=== PATIENT | female | born 1995 | race Two or more races ===

== ENCOUNTER 2023-05-09 21:26 | Emergency (ER) | payer MEDICAID ==
[~2023-05-09] VITALS: Ht 165.1 cm; Wt 59.9 kg
[2023-05-09] MEDS ORDERED: LIDOCAINE HCL 1% 20 ML VIAL TP ONE (21:45)
[2023-05-09] MEDS ORDERED: LIDOCAINE HCL 1% 20 ML VIAL ONE (21:52)
[2023-05-09] MEDS ORDERED: NEOMY/BACITRA/POLYMYXIN B OINT UD PACKET TP ONE ×2 (22:15)
[2023-05-09 22:38] VITALS: BP 101/72; O2SAT 100
== END 2023-05-09 22:38 | disposition home or self-care (01) ==
LOC: ER 21:40
DX: S61.412A Laceration without foreign body of left hand, initial encounter (principal); X58.XXXA Exposure to other specified factors, initial encounter; Y93.89 Activity, other specified; Y92.89 Other specified places as the place of occurrence of the external cause; Y99.8 Other external cause status
CPT/HCPCS: 12002; 73130; 99283; J3490; A4606; A4663

== ENCOUNTER 2023-05-11 14:12 | Emergency (ER) | payer MEDICAID ==
[~2023-05-11] VITALS: Ht 165.1 cm; Wt 59.9 kg
[2023-05-11 14:21] VITALS: O2SAT 100
[2023-05-11] MEDS ORDERED: CEPH500C2 PO (14:58)
[2023-05-11] MEDS ORDERED: ACET1TAB23 PO (14:58)
[2023-05-11] MEDS ORDERED: NEOMY/BACITRA/POLYMYXIN B OINT UD PACKET TP ONE ×2 (15:03→15:15)
== END 2023-05-11 15:17 | disposition home or self-care (01) ==
LOC: ER 14:12
DX: S61.412A Laceration without foreign body of left hand, initial encounter (principal); S69.92XA Unspecified injury of left wrist, hand and finger(s), initial encounter; Z79.899 Other long term (current) drug therapy; W26.8XXA Contact with other sharp object(s), not elsewhere classified, initial encounter; Y93.89 Activity, other specified; Y92.89 Other specified places as the place of occurrence of the external cause; Y99.8 Other external cause status
CPT/HCPCS: A4606; A4663

== ENCOUNTER 2023-05-15 14:09 | Emergency (ER) | payer MEDICAID ==
[~2023-05-15] VITALS: Ht 160 cm; Wt 49.0 kg
[~2023-05-15 14:09] MED LIST: ACET1TAB23 PO; CEPH500C2 PO
[2023-05-15 14:35] VITALS: O2SAT 100
[2023-05-15] MEDS ORDERED: BACITRACIN ZINC OINT 15 GM TUBE ONE (15:04)
[2023-05-15] MEDS ORDERED: BACITRACIN ZINC OINT 15 GM TUBE TOP STA (15:06)
== END 2023-05-15 15:18 | disposition home or self-care (01) ==
LOC: ER 14:13
DX: S61.412D Laceration without foreign body of left hand, subsequent encounter (principal); S64.496D Injury of digital nerve of right little finger, subsequent encounter; Z79.899 Other long term (current) drug therapy; X58.XXXD Exposure to other specified factors, subsequent encounter
CPT/HCPCS: A4606; A4663

== ENCOUNTER 2023-09-07 22:02 | Emergency (ER) | payer MEDICAID ==
[~2023-09-07] VITALS: Ht 170.2 cm; Wt 62.6 kg
[2023-09-07] MEDS ORDERED: NEOMY/POLYMYX B/HC OTIC SOL 10 ML BOTTLE OT ONE (23:15)
[2023-09-07] MEDS ORDERED: NEOMY/POLYMYX B/HC OPHT DROP 7.5 ML BOTTLE ONE (23:20)
[2023-09-07] MEDS: NEOMY/POLYMYX B/HC OPHT DROP 7.5 ML BOTTLE OP ONE (23:24)
[2023-09-07 23:25] VITALS: BP 96/61; O2SAT 100
== END 2023-09-07 23:26 | disposition home or self-care (01) ==
LOC: ER 22:04
DX: H92.01 Otalgia, right ear (principal); H61.23 Impacted cerumen, bilateral; Z79.899 Other long term (current) drug therapy
CPT/HCPCS: A4606; A4663